=== PATIENT | male | born 1985 | race Caucasian/White ===

== ENCOUNTER 2020-11-07 21:43 | Emergency (ER) | payer OTHER ==
[~2020-11-07] VITALS: Ht 177.8 cm; Wt 86.4 kg
[2020-11-07] MEDS ORDERED: OLANZapine 5 MG TABLET PO ONE (23:15)
[2020-11-07] MEDS ORDERED: LORazepam 2 MG TABLET PO ONE (23:15)
[2020-11-07 23:20] VITALS: BP 148/96
== END 2020-11-07 23:32 | disposition home or self-care (01) ==
LOC: EMS 21:45
DX: F41.9 Anxiety disorder, unspecified (principal); F19.10 Other psychoactive substance abuse, uncomplicated; F10.10 Alcohol abuse, uncomplicated; F31.9 Bipolar disorder, unspecified; I10 Essential (primary) hypertension; Z76.0 Encounter for issue of repeat prescription
CPT/HCPCS: 99283